=== PATIENT | female | born 1970 | race Two or more races ===

== ENCOUNTER 2022-11-17 09:22 | Emergency (ER) | payer OTHER ==
[~2022-11-17] VITALS: Ht 157.5 cm; Wt 59.0 kg
[~2022-11-17 09:22] MED LIST: IMODIUM2 MG PO; PHENERGAN25 MG PO; ZANTAC150 M1 PO
[2022-11-17] MEDS ORDERED: ZOLOFT25 MG PO (09:46)
[2022-11-17] MEDS ORDERED: CLONAZEPAM0.5 MG PO (09:46)
[2022-11-17] MEDS ORDERED: TUSNEL LIQUID178 ML PO (11:23)
[2022-11-17] MEDS ORDERED: ZITHROMAX500 MG PO (11:23)
[2022-11-17] MEDS ORDERED: FLONASE ALLERG9.9 ML NASAL (11:23)
== END 2022-11-17 11:40 | disposition home or self-care (01) ==
LOC: ER 09:22
DX: B34.9 Viral infection, unspecified (principal); Z20.822 Contact with and (suspected) exposure to COVID-19